=== PATIENT | male | born 1980 | race Caucasian/White ===

== ENCOUNTER 2022-01-02 11:47 | Outpatient (CLI) | payer OTHER, SELFPAY ==
--- NOTE | ~2022-01-02 | CT_ITS ---
EXAMINATION: CT abdomen pelvis wo con DATE: 01/02/2022 12:12 INDICATION: Left lower pelvic and right lower abdominal pain. Nausea. Hematuria. History kidney stone s. TECHNIQUE: Computed tomography (CT) of the abdomen and pelvis was performed without intravenous contr ast. Automated exposure control and iterative reconstruction technique were employed. Exam dose: 679 .83 mGy-cm total exam DLP. COMPARISON: None. FINDINGS: The lung bases are clear of infiltrate or consolidation. Normal heart size. No pericardial or pleural effusion. The liver, gallbladder, bile ducts, spleen, pancreas and pancreatic duct are unremarkable. Normal morphology of the adrenal glands. Approximately 1.6 cm indeterminate hypoattenuating lesion of the posterior aspect of the lower pole t he right kidney. This has attenuation of 8 Hounsfield units which might be consistent with cyst, but the margins are not well demonstrated and this lesion is not completely evaluated on this limited non contrast examination. Consider repeat CT examination with intravenous contrast material or ultrasound or MR evaluation. No other renal mass lesion is noted. There is an approximately 3.3 x 5 mm distal left ureteral calculus, without hydroureteronephrosis on the left or the right. No other urinary tract calculus is noted. Normal caliber of the abdominal aorta. No intraperitoneal or retroperitoneal or pelvic mass lesion or adenopathy or ascites. Mild prostate enlargement and multiple prostate calcifications. The urinary bladder is unremarkable. Very small fat-containing left inguinal hernia. Small fat-containing umbilical hernia. IMPRESSION: 3.3 x 5 mm distal left ureteral calculus, without hydroureteronephrosis Indeterminate hypoattenuating lesion of the lower pole of the right kidney; further evaluation is rec ommended (see above). Reviewed, dictated and finalized at [facility]. Reviewed, dictated and finalized at [facility]. IMPRESSION: 3.3 x 5 mm distal left ureteral calculus, without hydroureteroneph rosis Indeterminate hypoattenuating lesion of the lower pole of the right kidney; fur ther evaluation is recommended (see above).
== END 2022-01-02 11:48 | disposition home or self-care (01) ==
PROVIDERS: PCP Family Medicine; Visit Provider Nurse Practitioner Family
DX: R39.15 Urgency of urination (principal); R31.9 Hematuria, unspecified; R10.9 Unspecified abdominal pain; N21.1 Calculus in urethra; N28.9 Disorder of kidney and ureter, unspecified
CPT/HCPCS: 74176

== ENCOUNTER 2022-01-05 08:21 | Outpatient (CLI) | payer OTHER, SELFPAY ==
--- NOTE | ~2022-01-05 | CT_ITS ---
EXAMINATION: CT abdomen pelvis wo/w con DATE: 01/05/2022 09:17 INDICATION: Left flank pain. Right kidney lesion on prior CT examination TECHNIQUE: Computed tomography (CT) of the abdomen and pelvis was performed without and subsequently with 130 CC Omnipaque 300 intravenous contrast. Automated exposure control and iterative reconstructi on technique were employed. Exam dose: 1658.66 mGy-cm total exam DLP. COMPARISON: 01/02/[address] abdomen pelvis FINDINGS: Minimal bilateral lower lobe dependent atelectasis. The lung bases are clear of consolidati on. Normal heart size. No pericardial or pleural effusion. Small sliding hiatal hernia. Probable very small hepatic dome cyst. The liver is otherwise unremarkable. The gallbladder is presen t, without gallbladder wall thickening or pericholecystic fluid or fat stranding. No bile duct or castellon creatic duct dilatation. No pancreatic calcification. No splenomegaly. Normal morphology of the adrenal glands. Persistent up to approximately 5 mm left ureterovesical junction calculus with interval increased dis tention of the left ureter and left renal collecting system since 01/02/2022. There is mild left periu reteral stranding as well. No other urinary tract calculus. No right hydroureteronephrosis. 12.5 x 15 mm posterior lower pole right renal cyst with attenuation of 7 Hounsfield units pre- and po stcontrast administration. There is an up to approximately 6 x 11.4 mm contiguous posterior exophytic irregular area of hypoattenuation, possibly posterior extension of the cyst. However, the attenuatio n is greater than that of the cyst. MR renal examination should be considered to exclude neoplasm suc h as cystic hypernephroma (unless there are prior CT or MR examinations dating back 2 or more years t o show stability of this area). No evidence of appendicitis. No bowel obstruction, bowel wall thickening, pneumatosis or intraperiton eal free air. Mild prostate enlargement. Prostate calcifications. Right ureteral jet. The urinary bladder is unrema rkable. Normal caliber of the abdominal aorta. No intraperitoneal or retroperitoneal or pelvic mass lesion or adenopathy or ascites. Very small fat-containing left inguinal hernia. Small fat-containing umbilical hernia.. Included skeletal structures are unremarkable. IMPRESSION: Possible 5 mm left ureterovesical junction calculus persists, with mild to moderate hydr oureteronephrosis, increased since 01/02/2022. Irregular exophytic hypoattenuating lesion along the posterior lower pole of the right kidney; if thi s is not documented to be stable for a period of 2 or more years on prior CT or MR examinations, MR r enal examination is recommended Small sliding hiatal hernia Very small fat-containing left inguinal hernia and small fat-containing umbilical hernia Reviewed, dictated and finalized at [facility]. Reviewed, dictated and finalized at [facility]. IMPRESSION: Possible 5 mm left ureterovesical junction calculus persists, with mild to moderate hydroureteronephrosis, increased since 01/02/2022. Irregular exophytic hypoattenuating lesion along the posterior lower pole of th e right kidney; if this is not documented to be stable for a period of 2 or mor e years on prior CT or MR examinations, MR renal examination is recommended Small sliding hiatal hernia Very small fat-containing left inguinal hernia and small fat-containing umbilic al hernia
== END 2022-01-05 08:22 | disposition home or self-care (01) ==
PROVIDERS: PCP Family Medicine; Visit Provider Nurse Practitioner Family
DX: N28.89 Other specified disorders of kidney and ureter (principal); N20.0 Calculus of kidney; K44.9 Diaphragmatic hernia without obstruction or gangrene; K40.90 Unilateral inguinal hernia, without obstruction or gangrene, not specified as recurrent
CPT/HCPCS: 74178; Q9967